=== PATIENT | female | born 1965 | race Caucasian/White ===

== ENCOUNTER 2017-07-11 16:13 | Emergency (ER) | payer OTHER ==
[~2017-07-11] VITALS: Ht 154.9 cm; Wt 73.9 kg
[2017-07-11 16:16] VITALS: Ht 154.9 cm; Wt 73.9 kg
[2017-07-11] MEDS ORDERED: KETOROLAC 60 MG INJ IM STA (19:24)
--- NOTE | 2017-07-11 20:16 | RADRPT ---
PROCEDURE: XR Chest. CLINICAL INDICATION: chest wall pain TECHNIQUE: Single frontal view of the chest was obtained COMPARISON: None FINDINGS: The heart and mediastinum are within normal limits. The lungs are clear. There is no pleural effusion or pneumothorax. The bones and soft tissue show no acute change. IMPRESSION: No definite abnormalities are identified. RPTAT:AAJJ Sigifredo June Physician Date Time Electronically viewed and signed by Sigifredo June Physician on 07/11/2017 20:15 /
[2017-07-11] MEDS ORDERED: HYDR-906 PO (20:23)
[2017-07-11] MEDS ORDERED: NAPR-260 PO (20:23)
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
== END 2017-07-11 20:30 | disposition home or self-care (01) ==
LOC: FTE 16:13
DX: S29.9XXA Unspecified injury of thorax, initial encounter (principal); V49.40XA Driver injured in collision with unspecified motor vehicles in traffic accident, initial encounter
CPT/HCPCS: 71010; 96372; J1885; Z7502